=== PATIENT | female | born 1955 | race Caucasian/White ===

== ENCOUNTER → 2016-10-21 | Outpatient (CLI) | payer BC ==
[~2016-10-21] MED LIST: CEPH500C2 PO; FLUV100T2 PO; LAMO150T32 PO; SULF800T23 PO
[2016-10-21 17:47] LABS: BASO % 0.7 %; BASO ABS # 0.05 K/uL (0-0.2); COMPLETE YES; EOS % 3.6 %; IG% 0.1 %; LYMPH % 28.2 %; LYMPH ABS # 1.98 K/uL (1.2-3.4); MEAN CELL VOLUME 86.9 fL (80-100); MEAN CORPUSCULAR HEMOGLOBIN 28.3 pg (25-34); MEAN CORPUSCULAR HGB CONC 32.6 g/dl (32-36); MEAN PLATELET VOLUME 9.9 fL (7.4-10.4); MONO % 6.4 %; PLATELET COUNT 308 K/uL (130-400); RED BLOOD COUNT 4.95 M/uL (4.2-5.4); WHITE BLOOD COUNT 7.01 K/uL (4.8-10.8)
[2016-10-21 18:13] LABS: ALT/SGPT 17 U/L (12-78); AST/SGOT 9 U/L (15-37); BLOOD UREA NITROGEN 17 mg/dl (7-18); BUN/CREATININE RATIO 15.6 (10-20); CALCIUM 9.5 mg/dl (8.5-10.1); CARBON DIOXIDE 30 mmol/L (21-32); CHLORIDE 105 mmol/L (98-107); GLUCOSE 119 mg/dl (70-99); POTASSIUM 3.9 mmol/L (3.5-5.1); SODIUM 141 mmol/L (136-145)
[2016-10-21 18:23] LABS: ALB/GLOB RATIO 1.3 (0.9-2); ALKALINE PHOSPHATASE 144 U/L (45-117)
--- NOTE | 2016-10-25 12:15 | CODING QUERY MEDICAL NECESSITY ---
SUPPORTING DIAGNOSIS NEEDED Daniel GOULD, A supporting diagnosis is required for the test/procedure performed on this patient in order for us to be reimbursed by the patient's insurance. Please provide a supporting diagnosis for the following test/procedure listed below next to the test name along with your signature. *If there is no additional diagnosis for this patient that would support the following test/procedure please document that below next to the test/procedure. Test(s)/Procedure(s) that require a supporting diagnosis: * ([id number]) VITAMIN D ASSAY DIAGNOSIS: DATE OF SERVICE: 10/21/16 Provider Signature: Date: Thank you Brandon Fong [facility] Information Management Once completed, please kindly fax back to [phone] For questions please call [phone]
== END | disposition home or self-care (01) ==
LOC: C.LAB1850 17:05
PROVIDERS: ATTEND Nurse Practitioner
DX: L29.9 Pruritus, unspecified (principal)

== ENCOUNTER 2016-12-07 13:43 | Emergency (ER) | payer BC ==
[~2016-12-07] VITALS: Ht 160 cm; Wt 58.7 kg
[2016-12-07 13:45] VITALS: TEMP 36.7; Ht 160 cm; Wt 58.7 kg
[2016-12-07] MEDS ORDERED: LAMO150T32 PO (13:53)
[2016-12-07] MEDS ORDERED: FLUV100T2 PO (13:53)
[2016-12-07] MEDS ORDERED: DIPHTHERIA/TETANUS/PERTUSSIS 0.5 ML SYR/VIAL IM. ONE (14:00)
[2016-12-07] MEDS ORDERED: CEFTRIAXONE SOD INJ 1 GM in DEXTROSE 5% ADD-VANTAGE 50ML 50 ML IV STA (14:07)
--- NOTE | 2016-12-07 14:07 | EMERGENCY ROOM VISIT NOTE ---
History First contact with patient: 13:49 Chief Complaint: FINGER PAIN Stated Complaint: REFERRED BY DOC, POSSIBLE INFECTION IN R HAND History of Present Illness The patient is a 61 year old female who presents to the Emergency Room with complaints of right index finger swelling, pain and redness that started 3 days ago. The patient initially thought that she got a splinter in the pad of her right second finger. She then noticed that the redness began to spread into her hand. She denies any fever or chills. She denies any significant pain with movement of the finger. She is unsure of her last tetanus shot. The patient was evaluated at [facility], and sent here for further evaluation. Review of Systems 6 system review negative. Please see pertinent positives in the history of present illness section. Past Medical/Surgical History Depression Family History CVA Social History Smoking Status: Never Smoker Alcohol Use: none Marital Status: Housing Status: lives with significant other Current/Historical Medications Scheduled Cephalexin Monohydrate (Keflex), 500 MG PO QID Fluvoxamine Maleate (Luvox), 150 MG PO DAILY Lamotrigine (Lamictal), 75 MG PO DAILY Sulfa/Trimethoprim (Bactrim Ds 800MG/160MG), 1 TAB PO BID Physical Exam Vital Signs Date Time Temp Pulse Resp B/P (MAP) Pulse Ox O2 Delivery O2 Flow Rate FiO2 12/07/16 15:19 60 17 136/79 98 Room Air 12/07/16 13:45 36.7 87 18 149/92 98 Room Air Physical Exam VITALS: Vitals are noted on the nurse's note and reviewed by myself. Vital signs stable. GENERAL: 61-year-old female, in no acute distress, nondiaphoretic, well- developed well-nourished. HEAD: Normocephalic atraumatic. MUSCULOSKELETAL RIGHT HAND: Erythema, swelling and tenderness particularly to the pad of the right second digit. Erythema and redness extends into the hand to the MCP joint. No tenderness over the MCP joint itself no pain with passive flexion and extension of the finger. Mild pain with flexion against resistance. There is a 1 mm pustule in the center of the pad of the finger. No area of fluctuance appreciated. NEURO: Patient was alert and oriented to person place and time. Normal sensation to touch. No focal neurological deficits. Medical Decision & Procedures ER Provider Diagnostic Interpretation: Patient Name: CARLITOS ALMAGUER Unit Number: [id number] Dictated: 12/07/16 150 Transcribed: 12/07/16 150 PBS Printed Date/Time: [~ rep prt dt]/[~ rep prt tm] [~ rep ct labl] - [~ rep ct ivnm] [facility] Radiology Department [place] [id number] Dictated: 12/07/16 150 Transcribed: 12/07/16 150 PBS Printed Date/Time: [~ rep prt dt]/[~ rep prt tm] [~ rep ct labl] - [~ rep ct ivnm] RIGHT FINGER(S) MIN 2 VIEWS ROUTINE CLINICAL HISTORY: 61 years-old Female presenting with R 2nd finger redness swelling ? FB to pad of finger Right. TECHNIQUE: Frontal, oblique, and lateral views of the right second finger were obtained. COMPARISON: None. FINDINGS: No radiopaque foreign body. Soft tissue swelling over the proximal interphalangeal joint may be present. No subjacent osseous abnormality. Well-corticated tiny ossific fragments along the ulnar aspect of the base of the distal phalanx is not convincing for fracture fragment and may be degenerative in etiology or represent a sesamoid. No acute fracture or malalignment. IMPRESSION: No convincing evidence of acute osseous injury. No radiopaque foreign body. Electronically signed by: Anup Fernández M.D. 12/07/2016 3:03 PM Dictated Date/Time: 12/07/2016 3:01 PM The status of this report is Signed. Draft = Not yet reviewed or approved by Radiologist. Signed = Reviewed and approved by Radiologist. <AttendingPhy></AttendingPhy> <FamilyPhy></FamilyPhy> <PrimaryPhy>Cata Latham MD</PrimaryPhy> <UnitNumber>[id number]</UnitNumber> <VisitNumber> [id number]</VisitNumber> <PatientName>CARLITOS ALMAGUER</PatientName> < DateOfBirth>1955</DateOfBirth> <Location>[facility]</Location> <ServiceDate></ServiceDate> <MNE>ESINDI</MNE> <OrderingPhy>Manjula Rob PA-C</ OrderingPhy> <OrderingPhyMNE>f rep ord mne</OrderingPhyMNE> <DictatingPhyMNE> f rep dict mne</DictatingPhyMNE> <CCListMNE>f rep ct mne</CCListMNE> < AdmittingPhyMNE>f pt admit dr barahona</AdmittingPhyMNE> <AttendingPhyMNE>f pt attend dr barahona</AttendingPhyMNE> <ConsultingPhyMNE>f pt consult dr barahona</ConsultingPhyMNE> <FamilyPhyMNE>f pt fam dr thomase</FamilyPhyMNE> <OtherPhyMNE>f pt other dr thomase</OtherPhyMNE> < PrimaryPhyMNE>f pt prim care dr barahona</PrimaryPhyMNE> <ReferringPhyMNE>f pt referring dr barahona</ReferringPhyMNE> Laboratory Results 12/07/16 14:20 Red Blood Count 4.41, Mean Corpuscular Volume 85.0, Mean Corpuscular Hemoglobin 27.2, Mean Corpuscular Hemoglobin Concent 32.0, Mean Platelet Volume 10.2, Neutrophils (%) (Auto) 70.7, Lymphocytes (%) (Auto) 16.6, Monocytes (%) (Auto) 9.8, Eosinophils (%) (Auto) 2.4, Basophils (%) (Auto) 0.4, Neutrophils # (Auto) 5.34, Lymphocytes # (Auto) 1.25, Monocytes # (Auto) 0.74, Eosinophils # (Auto) 0.18, Basophils # (Auto) 0.03 12/07/16 14:20 Test 12/07/16 14:20 White Blood Count 7.55 K/uL (4.8-10.8) Red Blood Count 4.41 M/uL (4.2-5.4) Hemoglobin 12.0 g/dL (12.0-16.0) Hematocrit 37.5 % (37-47) Mean Corpuscular Volume 85.0 fL (80-100) Mean Corpuscular Hemoglobin 27.2 pg (25-34) Mean Corpuscular Hemoglobin Concent 32.0 g/dl (32-36) Platelet Count 236 K/uL (130-400) Mean Platelet Volume 10.2 fL (7.4-10.4) Neutrophils (%) (Auto) 70.7 % Lymphocytes (%) (Auto) 16.6 % Monocytes (%) (Auto) 9.8 % Eosinophils (%) (Auto) 2.4 % Basophils (%) (Auto) 0.4 % Neutrophils # (Auto) 5.34 K/uL (1.4-6.5) Lymphocytes # (Auto) 1.25 K/uL (1.2-3.4) Monocytes # (Auto) 0.74 K/uL (0.11-0.59) Eosinophils # (Auto) 0.18 K/uL (0-0.5) Basophils # (Auto) 0.03 K/uL (0-0.2) RDW Standard Deviation 45.3 fL (36.4-46.3) RDW Coefficient of Variation 14.5 % (11.5-14.5) Immature Granulocyte % (Auto) 0.1 % Immature Granulocyte # (Auto) 0.01 K/uL (0.00-0.02) Anion Gap 6.0 mmol/L (3-11) Est Creatinine Clear Calc Drug Dose 56.3 ml/min Estimated GFR () 82.2 Estimated GFR (Non- 70.9 BUN/Creatinine Ratio 13.9 (10-20) Calcium Level 8.9 mg/dl (8.5-10.1) Medications Administered Medications (Trade) Dose Ordered Sig/Zi Route Start Time Stop Time Status Last Admin Dose Admin Diphtheria/ Pertussis/Tetanus Vacc (Adacel Inj) 0.5 ml ONCE ONCE IM. 12/07/16 14:00 12/07/16 14:02 DC 12/07/16 14:30 0.5 ML Ceftriaxone Sodium (Rocephin Inj) 1 gm STK-MED ONCE .ROUTE 12/07/16 14:22 12/07/16 14:23 DC 12/07/16 14:26 1 GM ED Course Patient was seen and examined Vital signs including blood pressure were reviewed medications list was verified with patient Labs were obtained, and a saline lock was established The patient was given an Adacel injection. Imaging was performed and reviewed. She was given a tetanus shot. She was also given 1 dose of Rocephin 1 g IV The patient was reassessed and resting comfortably. We discussed the results of her x-rays. She voiced understanding. I reviewed discharge instructions the patient. They voiced understanding and had no further questions. Medical Decision Differential diagnosis: Cellulitis, foreign-body, tenosynovitis, osteo-myelitis this patient is a 61-year-old female that presented to the emergency department with right second finger redness, swelling and pain. An x-ray did not show any foreign body or signs of osteomyelitis. On exam, the patient did have significant redness. She did not however have significant pain with passive or active range of motion of the finger. I did not suspect tenosynovitis. There are no signs of abscess on exam. She was treated aggressively with IV antibiotics. She was put on Keflex and Bactrim. She was instructed to follow up with her primary care physician in 48 hours for recheck. She agrees to return the emergency department with any new or worsening symptoms Medication Reconcilliation Current Medication List: was personally reviewed by me Blood Pressure Screening Patient's blood pressure: Normal blood pressure Impression Primary Impression: Cellulitis Departure Information Dispostion Home / Self-Care Condition GOOD Prescriptions Sulfa/Trimethoprim (Bactrim Ds 800MG/160MG) Tab 1 TAB PO BID for 7 Days, #14 TAB Prov: Manjula Rob PA-C 12/07/16 Cephalexin Monohydrate (KEFLEX) 500 Mg Cap 500 MG PO QID for 7 Days, #28 CAP Prov: Manjula Rob PA-C 12/07/16 Referrals No Doctor, Assigned (PCP) Anup Guardado M.D. Patient Instructions Cellulitis Dc, [facility] Additional Instructions You were evaluated in the emergency department for redness and swelling of your right index finger. It appears that you have an infection causing cellulitis. Please finish the entire course of antibiotics Please follow-up with your primary care physician or an orthopedic doctor to have this rechecked in 48 hours. Ibuprofen 400 mg and/or Tylenol 1000 mg every 8 hours. You may also alternate these medications for more effective pain relief: Ibuprofen --4 HRS--> Tylenol --4 HRS--> ibuprofen --4 HRS--> Tylenol .... Return to the ER sooner for any of the following symptoms: -Increased redness, swelling or pain -Fever -Increased pain with movement of the finger
[2016-12-07] MEDS ORDERED: CEFTRIAXONE SOD INJ 1 GM ADDVIAL ONE (14:22)
[2016-12-07 14:44] LABS: BASO % 0.4 %; BASO ABS # 0.03 K/uL (0-0.2); COMPLETE YES; EOS % 2.4 %; HEMATOCRIT 37.5 % (37-47); IG% 0.1 %; LYMPH % 16.6 %; LYMPH ABS # 1.25 K/uL (1.2-3.4); MEAN CORPUSCULAR HEMOGLOBIN 27.2 pg (25-34); MEAN PLATELET VOLUME 10.2 fL (7.4-10.4); MONO % 9.8 %; NEUT % 70.7 %; PLATELET COUNT 236 K/uL (130-400); RED BLOOD COUNT 4.41 M/uL (4.2-5.4); WHITE BLOOD COUNT 7.55 K/uL (4.8-10.8)
[2016-12-07 14:58] LABS: BUN/CREATININE RATIO 13.9 (10-20); CALCIUM 8.9 mg/dl (8.5-10.1); CREATININE 0.89 mg/dl (0.60-1.20); POTASSIUM 3.8 mmol/L (3.5-5.1)
--- NOTE | 2016-12-07 15:04 | DIAGNOSTIC IMAGING REPORT ---
RIGHT FINGER(S) MIN 2 VIEWS ROUTINE CLINICAL HISTORY: 61 years-old Female presenting with R 2nd finger redness swelling ? FB to pad of finger Right. TECHNIQUE: Frontal, oblique, and lateral views of the right second finger were obtained. COMPARISON: None. FINDINGS: No radiopaque foreign body. Soft tissue swelling over the proximal interphalangeal joint may be present. No subjacent osseous abnormality. Well-corticated tiny ossific fragments along the ulnar aspect of the base of the distal phalanx is not convincing for fracture fragment and may be degenerative in etiology or represent a sesamoid. No acute fracture or malalignment. IMPRESSION: No convincing evidence of acute osseous injury. No radiopaque foreign body. Electronically signed by: Anup Fernández M.D. 12/07/2016 3:03 PM Dictated Date/Time: 12/07/2016 3:01 PM
[2016-12-07 15:19] VITALS: BP 136/79; PULSE 60; O2SAT 98
[2016-12-07] MEDS ORDERED: SULF800T23 PO (15:26)
[2016-12-07] MEDS ORDERED: CEPH500C2 PO (15:26)
== END 2016-12-07 15:34 | disposition home or self-care (01) ==
LOC: C.EDB 13:44 → C.EDD 15:34
DX: L03.011 Cellulitis of right finger (principal); F32.9 Major depressive disorder, single episode, unspecified; Z82.3 Family history of stroke; Z23 Encounter for immunization